=== PATIENT | male | born 1970 | race Caucasian/White ===

== ENCOUNTER 2021-12-24 22:04 | Emergency (ER) | payer OTHER, SELFPAY ==
[2021-12-24 22:08] VITALS: BP 121/75; PULSE 81; RESP 16; TEMP 36.9; O2SAT 98
--- NOTE | 2021-12-24 22:15 | DI.RAD_ITS ---
Exam(s) XR FINGER LT INDEX EXAM: XR FINGER LT INDEX EXAM DATE/TIME: CLINICAL HISTORY: aceration. TECHNIQUE: 2D digital imaging was performed of the left finger. Three views were obtained. PA/AP, oblique, and lateral views were obtained. COMPARISON: None. FINDINGS: BONES: No acute fracture is present. No bony destructive lesion is seen. JOINTS: No dislocation is present. SOFT TISSUE: There is soft tissue swelling of the finger. No imbedded radiopaque foreign bodies are present. IMPRESSION: No evidence of acute fracture or dislocation. DATA REPOSITORY: RADIATION DOSE DELIVERED:
[2021-12-24] MEDS: Lidocaine 1% Multi-Dose 20 ML VIAL IJ (22:49)
--- NOTE | 2021-12-24 23:12 | ED.GENADUL_ITS ---
Discharge Plan Disposition Patient Disposition: HOME Condition: Stable Discharge Details Clinical Impression: Laceration of finger of left hand Primary Care Provider: Unknown,Unknown ED Provider: Sharri Woodson Home Meds and New Rx's Prescriptions: No Action No Known Home Meds Discharge Instructions Instructions: Finger Laceration (ED) Additional Instructions: Keep wound clean and dry Do not submerge in water until sutures are removed The suture in the middle of your nail is absorbable This 3 black sutures are Ethilon and will need to be removed in 10 to 12 days Return spreading redness, fever, worsening pain Ibuprofen and Tylenol as needed for discomfort Discharge Data Discharge Date/Time-TO BE ENTERED AT DEPARTURE: 12/24/21 23:38 Medical Decision Making Suture removal in 10 to 12 days Dressing applied Tetanus updated No indication for antibiotics Return precautions discussed and patient expressed understanding Medical Records Medical records reviewed: Yes I reviewed the patient's medical records. Lab Data Lab results reviewed: Yes I reviewed the patient's lab results. HPI General Date/Time Provider Initiated Documentation: 12/24/21 22:23 . HPI Narrative: This 51-year-old gentleman presents with left index finger laceration on a razor blade approximately 5:00. Denies strength or sensation change. Needs tetanus. Denies any additional complaints. Related Data Home Medications Medication Instructions Recorded Confirmed Unknown [No Known Home Meds] 12/24/21 12/24/21 Allergies Allergy/AdvReac Type Severity Reaction Status Date / Time No Known Allergies Allergy Unverified 12/24/21 22:11 General Stated Complaint: Laceration MIKAELA: 4 Review of Systems Narrative: Review of systems obtained x3 and negative aside from indication in HPI PFSH Social History Smoking/Tobacco Use Status: Never Smoking risk assessment performed?: Yes Substance use type: does not use Exam Const General: cooperative and comfortable Extrem Hand/finger images: 1. 1 inch lACERATION Other: Neurovascularly intact Course Vital Signs Vital signs: Vital Signs Temperature 36.9 C 12/24/21 22:08 Pulse 81 12/24/21 22:08 Respiratory Rate 16 12/24/21 22:08 Blood Pressure 121/75 12/24/21 22:08 Pulse Oximetry 98 12/24/21 22:08 Temperature 36.9 C 12/24/21 22:08 Temperature Source Skin 12/24/21 22:08 Pulse 81 12/24/21 22:08 Respiratory Rate 16 12/24/21 22:08 Respiratory Effort 12/24/21 22:08 Blood Pressure 121/75 12/24/21 22:08 Blood Pressure Position Sitting 12/24/21 22:08 Pulse Oximetry 98 12/24/21 22:08 Oxygen Delivery Method Room Air 12/24/21 22:08 Oxygen Flow Rate 0 12/24/21 22:08 Pain Level 1 12/24/21 22:08 Procedures Laceration Laceration 1: Site: hand Side (If applicable): left Size (cm): 2.5 Description: linear Local Anesthetic: Lidocaine 1% Amount of anesthesia used (mL): 3 Skin layer closed with: nylon and other Size (cm): 4-0 Number of sutures: 4 Technique: simple, interrupted
--- NOTE | 2021-12-25 00:24 | DI.VRAD_ITS ---
PROCEDURE INFORMATION: Exam: XR Left Finger(s) Exam date and time: 12/24/2021 10:41 PM Age: 51 years old Clinical indication: Other: Laceration, TECHNIQUE: Imaging protocol: Radiologic exam of the Left fingers. Views: Minimum 2 views. COMPARISON: No relevant prior studies available. FINDINGS: Bones/joints: No evidence of fracture. Negative for dislocation. Negative for bony erosion or destructive change. Soft tissues: No soft tissue air. No embedded foreign bodies. Soft tissue swelling is noted in the index finger. IMPRESSION: No acute osseous abnormality. If symptoms persist, follow-up imaging is advised. Dictated and Authenticated by: Jonathan Prince MD. Ordering:JEREMIAS Harrell MD
== END 2021-12-24 23:38 | disposition home or self-care (01) ==
PROVIDERS: Emergency Provider Physician Assistant
DX: S61.211A Laceration without foreign body of left index finger without damage to nail, initial encounter (principal); W26.8XXA Contact with other sharp object(s), not elsewhere classified, initial encounter
CPT/HCPCS: 12001; 90471; 99283; 73140; 99282; J3490